=== PATIENT | male | born 1985 | race Caucasian/White ===

== ENCOUNTER 2018-08-26 11:14 | Inpatient (IN) | payer OTHER ==
[~2018-08-26] VITALS: Ht 177.8 cm; Wt 86.3 kg
[2018-08-26] VITALS (21 sets, daily range): BP systolic 105–132; BP diastolic 59–79; PULSE 54–94; RESP 9–25; Ht 177.8 cm; Wt 86.3 kg
[~2018-08-26 11:14] MED LIST: PROPOFOL 200 MG INJ ONE
[2018-08-26] MEDS ORDERED: KETOROLAC 30 MG INJ IM STA (13:37)
[2018-08-26] MEDS ORDERED: ONDANSETRON (ODT) 4 MG TAB ODT STA (13:37)
[2018-08-26] MEDS ORDERED: KETOROLAC 30 MG INJ IV STA (14:03)
[2018-08-26] MEDS ORDERED: morphine 4 MG/ML VIAL IV STA (15:37)
[2018-08-26] MEDS ORDERED: SOD CHLORIDE 0.9% 1,000 ML IV ONE (16:00)
[2018-08-26] MEDS ORDERED: PIPER-TAZO 3.375 GM IV (PMX) 100 ML IVPB ONE (16:30)
--- NOTE | 2018-08-26 17:02 | ERD ---
ER Documentation Chief Complaint Chief Complaint RLQ abdominal pain since last night with vomiting HPI The patient was initially seen by the PA who initiated a work-up The patient is a 33-year-old male, presenting to the ER because of abdominal pain that began last night, it began at the left upper quadrant, radiating down to the right lower quadrant, denies similar symptoms previously, denies fever, vomiting, dysuria, diarrhea. ROS All systems reviewed and are negative except as per history of present illness. Allergies Allergies: Coded Allergies: No Known Allergy (Unverified , 08/26/18) PMhx/Soc Hx Alcohol Use: No Hx Substance Use: No Hx Tobacco Use: No Smoking Status: Never smoker Physical Exam Vitals Vital Signs Date Temp Pulse Resp B/P (MAP) Pulse Ox O2 O2 Flow FiO2 Time Delivery Rate 08/26/18 98.2 58 18 117/69 99 Room Air 16:23 (85) 08/26/18 97.7 60 18 129/78 99 11:31 (95) Physical Exam Const: No acute distress. Head: Atraumatic. Eyes: Normal Conjunctiva. ENT: Normal External Ears, Nose and Mouth. Neck: Full range of motion. No meningismus. Resp: Clear to auscultation bilaterally. Cardio: Regular rate and rhythm. Abd: Soft, non distended, normal bowel sounds, moderate right lower quadrant tenderness, no rigidity/rebound/CVA tenderness Skin: No petechiae or rashes. Back: No midline or flank tenderness. Ext: No cyanosis, or edema. Neur: Awake and alert. No focal deficit Psych: Normal Mood and Affect. Result Diagram: 08/26/18 1359 08/26/18 1359 Results 24 hrs Laboratory Tests Test 08/26/18 13:59 White Blood Count 13.2 10^3/ul Red Blood Count 5.32 10^6/ul Hemoglobin 16.2 g/dl Hematocrit 47.5 % Mean Corpuscular Volume 89.3 fl Mean Corpuscular Hemoglobin 30.5 pg Mean Corpuscular Hemoglobin Concent 34.1 g/dl Red Cell Distribution Width 12.1 % Platelet Count 209 10^3/UL Mean Platelet Volume 9.9 fl Immature Granulocytes % 0.300 % Neutrophils % 84.5 % Lymphocytes % 8.3 % Monocytes % 6.3 % Eosinophils % 0.2 % Basophils % 0.4 % Nucleated Red Blood Cells % 0.0 /100WBC Immature Granulocytes # 0.040 10^3/ul Neutrophils # 11.2 10^3/ul Lymphocytes # 1.1 10^3/ul Monocytes # 0.8 10^3/ul Eosinophils # 0.0 10^3/ul Basophils # 0.1 10^3/ul Nucleated Red Blood Cells # 0.0 10^3/ul Urine Color YELLOW Urine Clarity CLEAR Urine pH 5.0 Urine Specific [place] 1.014 Urine Ketones NEGATIVE mg/dL Urine Nitrite NEGATIVE mg/dL Urine Bilirubin NEGATIVE mg/dL Urine Urobilinogen NEGATIVE mg/dL Urine Leukocyte Esterase NEGATIVE [place]/ul Urine Hemoglobin NEGATIVE mg/dL Urine Glucose NEGATIVE mg/dL Urine Total Protein NEGATIVE mg/dl Sodium Level 142 mmol/L Potassium Level 4.3 mmol/L Chloride Level 103 mmol/L Carbon Dioxide Level 29 mmol/L Anion Gap 10 Blood Urea Nitrogen 12 mg/dl Creatinine 1.06 mg/dl Est Glomerular Filtrat Rate mL/min > 60 mL/min Glucose Level 92 mg/dl Calcium Level 10.1 mg/dl Total Bilirubin 1.7 mg/dl Direct Bilirubin 0.00 mg/dl Indirect Bilirubin 1.7 mg/dl Aspartate Amino Transf (AST/SGOT) 20 IU/L Alanine Aminotransferase (ALT/SGPT) 23 IU/L Alkaline Phosphatase 44 IU/L Total Protein 7.7 g/dl Albumin 4.6 g/dl Globulin 3.10 g/dl Albumin/Globulin Ratio 1.48 Lipase 59 U/L Current Medications Medications Dose Sig/Gayatri Start Time Status Last (Trade) Ordered Route PRN Stop Time Admin Dose Reason Admin Ketorolac 60 mg ONCE STAT 08/26/18 DC Tromethamine IM 13:37 08/26/18 (Toradol) 14:04 Ondansetron 4 mg ONCE STAT 08/26/18 DC 08/26/18 HCl (Zofran ODT 13:37 08/26/18 14:10 Odt) 13:40 Ketorolac 30 mg ONCE STAT 08/26/18 DC 08/26/18 Tromethamine IV 14:03 08/26/18 14:11 (Toradol) 14:05 Morphine 4 mg ONCE STAT 08/26/18 DC 08/26/18 Sulfate IV 15:37 08/26/18 15:44 (morphine) 15:39 Sodium 1,000 ml @ Q1H ONCE 08/26/18 08/26/18 Chloride 1,000 mls/hr IV 16:00 08/26/18 15:45 16:59 Piperacillin 100 ml @ ONCE ONCE 08/26/18 08/26/18 Sod/ 200 mls/hr IVPB 16:30 08/26/18 16:51 Tazobactam 16:59 Sod Procedures/MDM [place] [address] Radiology Main Line: [phone] DIAGNOSTIC IMAGING REPORT Patient: MAHAMED CALLEJAS : 1985 Age: 33 Sex: M MR #: [id number] DOS: 08/26/18 1440 Ordering MD: PAULINO DOWNING NP Location: [facility] Room/Bed: PROCEDURE: CT ABDOMEN AND PELVIS WITHOUT CONTRAST. CLINICAL INDICATION: Right and left lower quadrant abdominal pain TECHNIQUE: CT scan of the abdomen and pelvis without contrast was performed on a multidetector high-resolution CT scanner. The patient was scanned without intravenous contrast. Coronal and sagittal reformatted images were obtained f rom the axial source images. Images were reviewed on a high-resolution PACS workstation. The total exam CTDI equals 12.5 mGy and the total exam DLP equals 780.5 mGy-cm. One or more of the following dose reduction techniques were used: Automated exposure control. Adjustment of the mA and/or kV according to patient size. Use of iterative reconstruction technique. DICOM images are available COMPARISON: None FINDINGS: CT abdomen: The lung bases are clear. The heart size is within normal limits. There is no significant pericardial effusion. Hepatic morphology is within normal limits. No gross contour deforming masses. The gallbladder is within normal limits. No evidence of intrahepatic or extrahepatic biliary dilatation. The spleen and pancreas are within normal limits. Both adrenal glands are within normal limits. Both kidneys are in normal anatomic position. No evidence of obstruction or hydronephrosis. No gross renal/ureteric calculi. The visualized GI tract demonstrates fluid-filled distension of the appendix with adjacent fluid. No perforation or focal fluid collection at this time. The unenhanced aorta is unremarkable. No significant retroperitoneal ly mphadenopathy. CT pelvis: The bladder is within limits. Prostate is normal size. Rectosigmoid colon demonstrates stool. No same pelvic lymphadenopathy. The visualized osseous structures appears to be within normal limits. IMPRESSION: 1. FINDINGS DESCRIBED ABOVE ARE MOST CONSISTENT WITH ACUTE APPENDICITIS. THE APPENDIX IS FLUID-FILLED AND DISTENDED WITH ADJACENT INFLAMMATORY CHANGES AND FLUID WITHIN RIGHT LOWER QUADRANT. No gross evidence of focal fluid collections or perforation at this time. 2. No evidence of bowel obstruction. 3. No gross renal/ureteric calculi. No obstructive uropathy. RPTAT: AAPP Physician Denise Date Time Electronically viewed and signed by Physician Denise on 08/26/2018 16:07 JL/ CC: PAULINO DOWNING NP [id number] Consultation: I discussed the patient with the on-call general surgeon Dr. Rollins at 4:30p, who was made aware of the lab, the treatment, the patient condition and he accepted the consult MEDICAL MAKING DECISION: The patient is a 33-year-old male, presenting with acute appendicitis, was treated with IV fluids, pain medication, Zosyn IV for acute appendicitis The differential diagnoses considered include but are not limited to cholelithiasis, cholecystitis, choledocholithiasis, cholangitis, pancreatitis, hepatitis, gastritis, peptic ulcer disease, gastric ulcer, appendicitis, cystitis, diverticulitis, partial small bowel obstruction. Departure Diagnosis: Primary Impression: Appendicitis Condition: Stable Comments I discussed the findings with the patient. I discussed the patient with the hospitalist, who was made aware of the lab, the treatment, the patient condition. The patient is admitted to [facility] Disclaimer: Inadvertent spelling and grammatical errors are likely due to EHR/dictation software use and do not reflect on the overall quality of patient care. Also, please note that the electronic time recorded on this note does not necessarily reflect the actual time of the patient encounter. MARGARITA KELLOGG MD August 26, 2018 17:02
--- NOTE | 2018-08-26 17:56 | PREAC ---
Date/Time of Note Date/Time of Note DATE: 08/26/18 TIME: 17:55 Anesthesia Eval and Record Evaluation Time Pre-Procedure Interview DATE: 08/26/18 TIME: 17:55 Age 33 Sex male NPO: 8 hrs Preoperative diagnosis appendicitis Planned procedure Lap Appy Past Medical History Past Medical History: None Surgery & Anesthesia Issues No known issue Meds Anticoagulation: No Beta Florin within 24 hr: No Reason Beta Florin not given: Pt. not on B-Florin Meds reviewed: Yes Allergies Coded Allergies: No Known Allergy (Unverified , 08/26/18) Allergies Reviewed: Yes Labs/Studies Labs Reviewed: Reviewed by anesthesiologist Result Diagram: 08/26/18 1359 08/26/18 1359 Laboratory Tests 08/26/18 13:59 test: N/A Pre-procedure Exam Last vitals Vital Signs Date Temp Pulse Resp B/P (MAP) Pulse Ox O2 O2 Flow FiO2 Time Delivery Rate 08/26/18 98.7 61 18 117/75 99 Room Air 17:27 (89) Airway: Adequate mouth opening, Adequate thyromental dist Mallampati: Mallampati II Teeth: Normal Lung: Normal Heart: Normal ASA Physical Status ASA physical status: 1 Emergency: None Pre-operative Attestations Prior to commencing anesthesia and surgery, the patient was re-evaluated, there was verification of: *The patient's identity *The results of appropriate recent lab work and preoperative vital signs *The above evaluation not changing prior to induction *Anesthetic plan, risk benefits, alternative and complications discussed with patient/family; questions answered; patient/family understands, accepts and wishes to proceed. ALAN TURNER August 26, 2018 17:56
[2018-08-26] MEDS ORDERED: FENTAnyl 50 MCG/ML VIAL ONE (17:59)
[2018-08-26] MEDS ORDERED: MEPERIDINE 25 MG INJ IV PRN (18:00)
[2018-08-26] MEDS ORDERED: FENTAnyl 50 MCG/ML VIAL IV PRN ×3 (18:00)
[2018-08-26] MEDS ORDERED: DIPHENHYDRAMINE 50 MG INJ IV PRN ×2 (18:00→19:30)
[2018-08-26] MEDS ORDERED: ONDANSETRON 4 MG INJ IV PRN ×3 (18:00→19:30)
[2018-08-26] MEDS ORDERED: HYDROmorphONE 1 MG/5 ML IV SYRINGE IV PRN ×3 (18:00)
[2018-08-26] MEDS ORDERED: METOCLOPRAMIDE 10 MG INJ IV PRN (18:00)
[2018-08-26] MEDS ORDERED: ALBUTEROL 0.083% (NEB) 2.5 MG/3 ML AMP HHN PRN (18:00)
--- NOTE | 2018-08-26 18:02 | CONS ---
Assessment/Plan Assessment/Plan Assessment/Plan (Daily) Acute appendicitis. Patient needs laparoscopic appendectomy. We discussed risk and benefits. We discussed risks and benefits were discussed possible side effects, possible complications including but not limited to bleeding, infection, injury to other organs, anesthesia complication, patient understood risk and benefits and wished to proceed. Consultation Date/Type/Reason Admit Date/Time Date of Consultation: August 26, 2018 Type of Consult Surgical Reason for Consultation Abdominal pain Date/Time of Note DATE: 08/26/18 TIME: 17:59 Hx of Present Illness 33-year-old otherwise healthy male developed diffuse abdominal pain yesterday that focused in the right lower quadrant. Pain was associated with nausea emesis x1. Patient was referred to the emergency room where a CT scan was performed that showed findings consistent with acute appendicitis. White blood count was found to be 13,000. Surgical consultation was requested. Constitutional: no complaints, improved Eyes: no complaints ENT: no complaints Respiratory: no complaints Cardiovascular: no complaints Gastrointestinal: pain, decreased appetite, nausea, vomiting Genitourinary: no complaints Musculoskeletal: no complaints Skin: no complaints Neurologic: no complaints Endocrine: no complaints Lymphatic: no complaints Psychological: no complaints, nl mood/affect Immunologic: no complaints Past Medical History Medical History: no pertinent history Medications Current Medications Hydromorphone HCl (Dilaudid) 0.2 mg PACU PRN IV MILD PAIN 1-3; Start 08/26/18 at 18:00; Status UNV Hydromorphone HCl (Dilaudid) 0.4 mg PACU PRN IV MOD PAIN 4-6; Start 08/26/18 at 18:00; Status UNV Hydromorphone HCl (Dilaudid) 0.6 mg PACU PRN IV SEVERE PAIN 7-10; Start 08/26/18 at 18:00; Status UNV Fentanyl (Sublimaze) 25 mcg PACU ORDER PRN IV MILD PAIN 1-3; Start 08/26/18 at 18:00; Status UNV Fentanyl (Sublimaze) 50 mcg PACU ORDER PRN IV MOD PAIN 4-6; Start 08/26/18 at 18:00; Status UNV Fentanyl (Sublimaze) 75 mcg PACU ORDER PRN IV SEVERE PAIN 7-10; Start 08/26/18 at 18:00; Status UNV Ondansetron HCl (Zofran Inj) 4 mg PACU ORDER PRN IV NAUSEA/VOMITING; Start 08/26/18 at 18:00; Status UNV Metoclopramide HCl (Reglan) 10 mg PACU ORDER PRN IV NAUSEA/VOMITING; Start 08/26/18 at 18:00; Status UNV Albuterol (Proventil 0.083% (Neb)) 2.5 mg PACU ORDER PRN HHN .WHEEZING; Start 08/26/18 at 18:00; Status UNV Meperidine HCl (Demerol) 25 mg PACU ORDER PRN IV .RIGORS; Start 08/26/18 at 18:00; Status UNV Diphenhydramine HCl (Benadryl) 25 mg PACU ORDER PRN IV .PRURITUS; Start 08/26/18 at 18:00; Status UNV Allergies: Coded Allergies: No Known Allergy (Unverified , 08/26/18) Past Surgical History Past Surgical Hx: no surgical history Family History Significant Family History: no pertinent family hx Social History Smoking Status: Never smoker Exam/Review of Systems Exam Vitals Vital Signs Date Temp Pulse Resp B/P (MAP) Pulse Ox O2 O2 Flow FiO2 Time Delivery Rate 08/26/18 98.7 61 18 117/75 99 Room Air 17:27 (89) Constitutional: alert, oriented, well developed Psych: no complaints, nl mood/affect Head: normocephalic, atraumatic Eyes: nl conjunctiva, EOMI, nl lids, nl sclera, PERRL ENMT: nl external ears & nose, nl lips & teeth, nl nasal mucosa & septum Neck: supple, non-tender Respiratory: clear to auscultation, normal air movement Cardiovascular: regular rate and rhythm, nl pulses Gastrointestinal: other (Abdomen is soft not distended there is a positive Rovsing sign, there is a significant tenderness in the right lower quadrant on deep palpation with rebound.) Musculoskeletal: nl extremities to inspection, nl gait and stance Extremities: normal pulses Neurological: JOB INTERVIEWER II-XII intact, nl mental status, nl speech, nl strength Skin: nl turgor; No rash or lesions Lymph: nl lymph nodes Results Result Diagram: 08/26/18 1359 08/26/18 1359 Results 24hrs Laboratory Tests Test 08/26/18 13:59 White Blood Count 13.2 H Red Blood Count 5.32 Hemoglobin 16.2 Hematocrit 47.5 Mean Corpuscular Volume 89.3 Mean Corpuscular Hemoglobin 30.5 Mean Corpuscular Hemoglobin Concent 34.1 Red Cell Distribution Width 12.1 Platelet Count 209 Mean Platelet Volume 9.9 Immature Granulocytes % 0.300 Neutrophils % 84.5 H Lymphocytes % 8.3 L Monocytes % 6.3 Eosinophils % 0.2 Basophils % 0.4 Nucleated Red Blood Cells % 0.0 Immature Granulocytes # 0.040 H Neutrophils # 11.2 H Lymphocytes # 1.1 Monocytes # 0.8 Eosinophils # 0.0 Basophils # 0.1 Nucleated Red Blood Cells # 0.0 Urine Color YELLOW Urine Clarity CLEAR Urine pH 5.0 Urine Specific [place] 1.014 Urine Ketones NEGATIVE Urine Nitrite NEGATIVE Urine Bilirubin NEGATIVE Urine Urobilinogen NEGATIVE Urine Leukocyte Esterase NEGATIVE Urine Hemoglobin NEGATIVE Urine Glucose NEGATIVE Urine Total Protein NEGATIVE Sodium Level 142 Potassium Level 4.3 Chloride Level 103 Carbon Dioxide Level 29 Anion Gap 10 Blood Urea Nitrogen 12 Creatinine 1.06 Est Glomerular Filtrat Rate mL/min > 60 Glucose Level 92 Calcium Level 10.1 Total Bilirubin 1.7 H Direct Bilirubin 0.00 Indirect Bilirubin 1.7 H Aspartate Amino Transf (AST/SGOT) 20 Alanine Aminotransferase (ALT/SGPT) 23 Alkaline Phosphatase 44 Total Protein 7.7 Albumin 4.6 Globulin 3.10 Albumin/Globulin Ratio 1.48 Lipase 59 Medications Medication Current Medications Hydromorphone HCl (Dilaudid) 0.2 mg PACU PRN IV MILD PAIN 1-3; Start 08/26/18 at 18:00; Status UNV Hydromorphone HCl (Dilaudid) 0.4 mg PACU PRN IV MOD PAIN 4-6; Start 08/26/18 at 18:00; Status UNV Hydromorphone HCl (Dilaudid) 0.6 mg PACU PRN IV SEVERE PAIN 7-10; Start 08/26/18 at 18:00; Status UNV Fentanyl (Sublimaze) 25 mcg PACU ORDER PRN IV MILD PAIN 1-3; Start 08/26/18 at 18:00; Status UNV Fentanyl (Sublimaze) 50 mcg PACU ORDER PRN IV MOD PAIN 4-6; Start 08/26/18 at 18:00; Status UNV Fentanyl (Sublimaze) 75 mcg PACU ORDER PRN IV SEVERE PAIN 7-10; Start 08/26/18 at 18:00; Status UNV Ondansetron HCl (Zofran Inj) 4 mg PACU ORDER PRN IV NAUSEA/VOMITING; Start 08/26/18 at 18:00; Status UNV Metoclopramide HCl (Reglan) 10 mg PACU ORDER PRN IV NAUSEA/VOMITING; Start 08/26/18 at 18:00; Status UNV Albuterol (Proventil 0.083% (Neb)) 2.5 mg PACU ORDER PRN HHN .WHEEZING; Start 08/26/18 at 18:00; Status UNV Meperidine HCl (Demerol) 25 mg PACU ORDER PRN IV .RIGORS; Start 08/26/18 at 18:00; Status UNV Diphenhydramine HCl (Benadryl) 25 mg PACU ORDER PRN IV .PRURITUS; Start 08/26/18 at 18:00; Status UNV TURNER MARSH MD August 26, 2018 18:02
[2018-08-26] MEDS ORDERED: ROPIVACAINE 0.5 % 30 ML VIAL ONE (18:03)
[2018-08-26] MEDS ORDERED: SOD CHLORIDE 0.9% 1,000 ML IV SCH (18:21)
[2018-08-26] MEDS ORDERED: NITROGLYCERIN (SL) 0.4 MG TAB SL PRN (18:30)
[2018-08-26] MEDS ORDERED: ACETAMINOPHEN 325 MG TAB PO PRN ×2 (18:30→19:30)
[2018-08-26] MEDS ORDERED: DOCUSATE SODIUM 100 MG CAP PO PRN (18:30)
[2018-08-26] MEDS ORDERED: ALBUTEROL/IPRATROPIUM (NEB) 3 ML AMP HHN PRN (18:30)
[2018-08-26] MEDS ORDERED: NACL 0.9% 3 ML SYG IV SCH (18:30)
[2018-08-26] MEDS ORDERED: hydrALAzine 20 MG INJ IV PRN (18:30)
[2018-08-26] MEDS ORDERED: MAGNESIUM HYDROXIDE 30ML CUP PO PRN (18:30)
[2018-08-26] MEDS ORDERED: LORAZEPAM 2 MG INJ IV PRN (18:30)
[2018-08-26] MEDS ORDERED: MIDAZOLAM 1 MG/ML 2 ML INJ ONE (18:35)
[2018-08-26] MEDS ORDERED: ROCURONIUM 50 MG INJ ONE (18:53)
[2018-08-26] MEDS ORDERED: PROPOFOL 20 ML ONE (18:53)
[2018-08-26] MEDS ORDERED: SUCCINYLCHOLINE CHLORIDE 100 MG/5 ML SYG IV ONE (18:53)
[2018-08-26] MEDS ORDERED: LIDOCAINE 100 MG SYRINGE ONE (18:53)
[2018-08-26] MEDS ORDERED: SUGAMMADEX SODIUM 200 MG/2 ML VIAL IV ONE (18:54)
--- NOTE | 2018-08-26 19:05 | OPR ---
Date/Time of Note Date/Time of Note DATE: 08/26/18 TIME: 19:00 Operative Report Procedure Date: August 26, 2018 Preoperative Diagnosis Acute appendicitis Postoperative Diagnosis Acute phlegmonous appendicitis Operation/Procedure Performed Laparoscopic appendectomy Surgeon see signature line Molding Technician None Anesthesia Type: general Anesthesiologist: ALAN TURNER Estimated Blood Loss: minimal Transfusion none Specimen Appendix Grafts/Implants none Complications none Pt Condition Post Procedure: stable Disposition: PACU Indications 33-year-old male with with abdominal pain, underwent work-up in the emergency room and found to have acute appendicitis. We discussed risks and benefits were discussed possible side effects, possible complications including but not limited to bleeding, infection, injury to other organs, anesthesia complication, patient understood risk and benefits and wished to proceed. Procedure Description The risks, benefits and alternatives of the procedure were discussed with the patient and informed consent was obtained. We discussed with the patient and the family possibility of the bleeding, infection, injury to other organs. Patient was brought to operating room positioned supine. General endotracheal anesthesia was induced. Abdomen was prepped and draped in the usual sterile fashion. Timeout was performed. Antibiotics were given previously. Through the small infraumbilical incision the Veress needle was placed and the abdomen was insufflated with CO2 up to 15 mmHg. Through the same incision 5 mm trocar was placed under direct control of the laparoscope. 2 additional trocars were placed in the midline, 12 mm trocar just above the pubis and 5 mm trocar midline between the pubis and the umbilicus. The appendix was visualized and was found to be acutely inflamed with phlegmon. The window was created using blunt dissection at the mesentery of the appendix next to the cecum and appendix was divided using endoscopic stapler with white load. The additional load of the same stapler was used to divide the mesentery. The hemostasis was confirmed. Local bleeding was controlled with the cautery. The abdomen was irrigated all the fluid was carefully sucked out. There is appendix was removed through the 12 mm trocar using Endocatch. The abdomen was desufflated all trocars were removed. The 12 mm trocar was closed in 2 layers using 0 Vicryl to the fascia and 4-0 Monocryl for the skin. The 5 mm trocars were closed just using 4-0 Monocryl to the skin. Patient tolerated procedure well was extubated transferred to recovery room. TURNER MARSH MD August 26, 2018 19:05
[2018-08-26] MEDS ORDERED: DIPHENHYDRAMINE 25 MG CAP PO PRN (19:30)
[2018-08-26] MEDS ORDERED: KETOROLAC 30 MG INJ IV PRN (19:30)
[2018-08-26] MEDS ORDERED: HYDROmorphONE 0.5 MG/0.5 ML SYG IV PRN (19:30)
[2018-08-26] MEDS: D5W-0.45 NACL + KCL 20 MEQ 1,000 ML IV SCH (23:20)
[2018-08-26] MEDS: PIPER-TAZO 3.375 GM IV (PMX) 100 ML IVPB SCH (23:20)
--- NOTE | 2018-08-26 23:40 | HP ---
Date/Time of Note Date/Time of Note DATE: 08/26/18 TIME: 23:40 Assessment/Plan VTE Prophylaxis Risk score (from Ns)>0 risk: 2 SCD applied (from Ns): Yes Pharmacological prophylaxis: heparin Lines/[facility] Assessment/Plan Assessment/Plan 1. Acute phlegmonous appendicitis: Status post laparoscopic appendectomy -Resume diet when cleared by surgery -Pain management -Encourage ambulation 2. Leukocytosis: Secondary to above Result Diagram: 08/26/18 1359 08/26/18 1359 Results 24hrs Laboratory Tests Test 08/26/18 13:59 White Blood Count 13.2 H Red Blood Count 5.32 Hemoglobin 16.2 Hematocrit 47.5 Mean Corpuscular Volume 89.3 Mean Corpuscular Hemoglobin 30.5 Mean Corpuscular Hemoglobin Concent 34.1 Red Cell Distribution Width 12.1 Platelet Count 209 Mean Platelet Volume 9.9 Immature Granulocytes % 0.300 Neutrophils % 84.5 H Lymphocytes % 8.3 L Monocytes % 6.3 Eosinophils % 0.2 Basophils % 0.4 Nucleated Red Blood Cells % 0.0 Immature Granulocytes # 0.040 H Neutrophils # 11.2 H Lymphocytes # 1.1 Monocytes # 0.8 Eosinophils # 0.0 Basophils # 0.1 Nucleated Red Blood Cells # 0.0 Prothrombin Time 13.3 Prothrombin Time Ratio 1.0 INR International Normalized Ratio 1.00 Activated Partial Thromboplast Time 26.6 Urine Color YELLOW Urine Clarity CLEAR Urine pH 5.0 Urine Specific [place] 1.014 Urine Ketones NEGATIVE Urine Nitrite NEGATIVE Urine Bilirubin NEGATIVE Urine Urobilinogen NEGATIVE Urine Leukocyte Esterase NEGATIVE Urine Hemoglobin NEGATIVE Urine Glucose NEGATIVE Urine Total Protein NEGATIVE Sodium Level 142 Potassium Level 4.3 Chloride Level 103 Carbon Dioxide Level 29 Anion Gap 10 Blood Urea Nitrogen 12 Creatinine 1.06 Est Glomerular Filtrat Rate mL/min > 60 Glucose Level 92 Calcium Level 10.1 Total Bilirubin 1.7 H Direct Bilirubin 0.00 Indirect Bilirubin 1.7 H Aspartate Amino Transf (AST/SGOT) 20 Alanine Aminotransferase (ALT/SGPT) 23 Alkaline Phosphatase 44 Total Protein 7.7 Albumin 4.6 Globulin 3.10 Albumin/Globulin Ratio 1.48 Lipase 59 Free Thyroxine 1.07 HPI/ROS Admit Date/Time Admit Date/Time Hx of Present Illness Patient is a 33-year-old male with no significant past medical history who presents the ER complaining of bilateral left and right lower quadrant abdominal pain x 1 day. In the ER he was found to have acute appendicitis. Patient was taken to the OR with a finding of acute phlegmonous appendicitis and he is status post laparoscopic appendectomy. Patient not complaining of chest pain, shortness of breath, nausea/vomiting. PMH/Family/Social Past Medical History Medical History: no pertinent history Medications Current Medications Hydromorphone HCl (Dilaudid) 0.2 mg PACU PRN IV MILD PAIN 1-3; Start 08/26/18 at 18:00; Stop 08/27/18 at 01:00 Hydromorphone HCl (Dilaudid) 0.4 mg PACU PRN IV MOD PAIN 4-6; Start 08/26/18 at 18:00; Stop 08/27/18 at 01:00 Hydromorphone HCl (Dilaudid) 0.6 mg PACU PRN IV SEVERE PAIN 7-10; Start 08/26/18 at 18:00; Stop 08/27/18 at 01:00 Fentanyl (Sublimaze) 25 mcg PACU ORDER PRN IV MILD PAIN 1-3; Start 08/26/18 at 18:00; Stop 08/27/18 at 01:00 Fentanyl (Sublimaze) 50 mcg PACU ORDER PRN IV MOD PAIN 4-6 Last administered on 08/26/18at 19:37; Admin Dose 50 MCG; Start 08/26/18 at 18:00; Stop 08/27/18 at 01:00 Fentanyl (Sublimaze) 75 mcg PACU ORDER PRN IV SEVERE PAIN 7-10; Start 08/26/18 at 18:00; Stop 08/27/18 at 01:00 Ondansetron HCl (Zofran Inj) 4 mg PACU ORDER PRN IV NAUSEA/VOMITING Last administered on 08/26/18at 19:38; Admin Dose 4 MG; Start 08/26/18 at 18:00; Stop 08/27/18 at 01:00 Metoclopramide HCl (Reglan) 10 mg PACU ORDER PRN IV NAUSEA/VOMITING; Start 08/26/18 at 18:00; Stop 08/27/18 at 01:00 Albuterol (Proventil 0.083% (Neb)) 2.5 mg PACU ORDER PRN HHN .WHEEZING; Start 08/26/18 at 18:00; Stop 08/27/18 at 01:00 Meperidine HCl (Demerol) 25 mg PACU ORDER PRN IV .RIGORS; Start 08/26/18 at 18:00; Stop 08/27/18 at 01:00 Diphenhydramine HCl (Benadryl) 25 mg PACU ORDER PRN IV .PRURITUS; Start 08/26/18 at 18:00; Stop 08/27/18 at 01:00 IV Flush (NS 3 ml) 3 ml PER PROTOCOL IV ; Start 08/26/18 at 18:30 Docusate Sodium (Colace) 100 mg Q12H PRN PO .CONSTIPATION; Start 08/26/18 at 18:30 Magnesium Hydroxide (Milk Of Mag) 30 ml DAILY PRN PO .CONSTIPATION; Start 08/26/18 at 18:30 Lorazepam (Ativan) 0.5 mg Q6H PRN IV ANXIETY; Start 08/26/18 at 18:30 Albuterol/ Ipratropium (Duoneb) 3 ml Q4H RESP THERAPY PRN HHN SHORTNESS OF BREATH; Start 08/26/18 at 18:30 Piperacillin Sod/ Tazobactam Sod 100 ml @ 200 mls/hr Q6 IVPB Last administered on 08/26/18at 23:20; Admin Dose 200 MLS/HR; Start 08/27/18 at 00:00 Hydralazine HCl (Apresoline) 10 mg Q6H PRN IV ELEVATED BLOOD PRESSURE; Start 08/26/18 at 18:30 Nitroglycerin (Nitroglycerin (Sl Tab) 0.4 Mg) 1 tab Q5M PRN SL ANGINA; Start 08/26/18 at 18:30 Ondansetron HCl (Zofran Inj) 4 mg Q6H PRN IV NAUSEA AND/OR VOMITING; Start 08/26/18 at 19:30 Acetaminophen (Tylenol Tab) 650 mg Q6H PRN PO PAIN LEVEL 1-3 OR FEVER; Start 08/26/18 at 19:30 Ketorolac Tromethamine (Toradol) 30 mg Q6H PRN IV PAIN; Start 08/26/18 at 19:30; Stop 08/29/18 at 19:29 Hydromorphone HCl (Dilaudid) 0.5 mg Q4H PRN IV PAIN LEVEL 8-10; Start 08/26/18 at 19:30 Acetaminophen/ Hydrocodone Bitart ([place] (5/325)) 1 tab Q6H PRN PO PAIN LEVEL 4-7; Start 08/26/18 at 19:30 Potassium Chloride/Dextrose/ Sod Cl 1,000 ml @ 100 mls/hr Q10H IV Last administered on 08/26/18at 23:20; Admin Dose 100 MLS/HR; Start 08/26/18 at 19:05; Stop 08/29/18 at 19:04 Diphenhydramine HCl (Benadryl) 25 mg Q6H PRN IV PRURITUS; Start 08/26/18 at 19:30 Diphenhydramine HCl (Benadryl) 25 mg Q6H PRN PO PRURITUS; Start 08/26/18 at 19:30 Coded Allergies: No Known Allergy (Unverified , 08/26/18) Past Surgical History Past Surgical Hx: no surgical history Family History Significant Family History: no pertinent family hx Social History Smoking Status: Never smoker Exam/Review of Systems Vital Signs Vitals Vital Signs Date Temp Pulse Resp B/P (MAP) Pulse Ox O2 O2 Flow FiO2 Time Delivery Rate 08/26/18 97.9 60 14 114/59 Room Air 22:00 (77) 08/26/18 97 21:45 08/26/18 8.0 19:13 Exam Exam Constitutional: alert, oriented, well developed Head: normocephalic, atraumatic Eyes: EOMI, PERRL Respiratory: clear to auscultation, normal air movement Cardiovascular: regular rate and rhythm, nl pulses Gastrointestinal: soft, other (Right lower quadrant tenderness elicited on palpation. Patient also with right flank pain) Extremities: normal pulses DUGLAS CARTAGENA MD August 26, 2018 23:40
[2018-08-27 01:48] VITALS: BP 105/64; PULSE 90; RESP 18
[2018-08-27 04:09] VITALS: BP 105/56; PULSE 67; RESP 18
[2018-08-27] MEDS: PIPER-TAZO 3.375 GM IV (PMX) 100 ML IVPB SCH ×2 (05:40→12:54)
[2018-08-27] MEDS: HYDROCODONE/APAP (5/325) TAB PO PRN ×2 (06:10→11:58)
--- NOTE | 2018-08-27 07:20 | PAC ---
Date/Time of Note Date/Time of Note DATE: 08/27/18 TIME: 07:19 Post-Anesthesia Notes Post-Anesthesia Note Last documented vital signs Vital Signs Date Temp Pulse Resp B/P (MAP) Pulse Ox O2 O2 Flow FiO2 Time Delivery Rate 08/27/18 98.4 67 18 105/56 99 Room Air 04:09 (72) 08/26/18 8.0 19:13 Activity: WNL Respiratory function: WNL Cardiovascular function: WNL Mental status: Baseline Pain reasonably controlled: Yes Hydration appropriate: Yes Nausea/Vomiting absent: Yes ALAN TURNER August 27, 2018 07:20
[2018-08-27 08:02] VITALS: BP 102/59; PULSE 88; RESP 18
[2018-08-27] MEDS: D5W-0.45 NACL + KCL 20 MEQ 1,000 ML IV SCH (11:14)
[2018-08-27] MEDS ORDERED: HYDR-4011 PO (12:44)
[2018-08-27] MEDS ORDERED: AMOX1TAB9 PO (12:44)
--- NOTE | 2018-08-27 12:50 | DS ---
Date/Time of Note Date/Time of Note DATE: 08/27/18 TIME: 12:47 Discharge Summary Admission/Discharge Info Admit Date/Time August 26, 2018 at 17:18 Discharge Date/Time Discharge Diagnosis 1. Acute phlegmonous appendicitis, Status post laparoscopic appendectomy on 08/26/2018, stable, follow up with surgery Patient Condition: Stable Hospital Course Patient is a 33-year-old male with no significant past medical history who presents the ER complaining of bilateral left and right lower quadrant abdominal pain x 1 day. In the ER he was found to have acute appendicitis. Patient was taken to the OR with a finding of acute phlegmonous appendicitis and he is status post laparoscopic appendectomy on 08/26/2018. Patient tolerates diet, afe brile. Pain is controlled. Patient will be discharged and instructed to follow up with surgery in one week. Home Meds Active Scripts Hydrocodone/Acetaminophen ([place] 5-325 Tablet) 1 Each Tablet, 1 EACH PO Q6H, #14 TAB Prov:DOMINIC AQUINO MD 08/27/18 Amoxicillin/Potassium Clav (Amox-Clav 500-125 mg Tablet) 500-125 mg Tab, 1 TAB PO BID for 7 Days, TAB Prov:DOMINIC AQUINO MD 08/27/18 Follow-up Plan follow up with PCP and surgeon in one week Primary Care Provider Care Physician No Primary Pending Labs Laboratory Tests Test 08/26/18 13:59 08/27/18 04:59 White Blood Count 13.2 10^3/ul (4.8-10.8) 8.3 10^3/ul (4.8-10.8) Red Blood Count 5.32 10^6/ul (4.70-6.10) 4.05 10^6/ul (4.70-6.10) Hemoglobin 16.2 g/dl (14.0-18.0) 12.4 g/dl (14.0-18.0) Hematocrit 47.5 % (42.0-52.0) 36.2 % (42.0-52.0) Mean Corpuscular Volume 89.3 fl (82.0-101.0) 89.4 fl (82.0-101.0) Mean Corpuscular 30.5 pg (29.0-33.0) 30.6 pg (29.0-33.0) Hemoglobin Mean Corpuscular 34.1 g/dl (32.0-37.0) 34.3 g/dl (32.0-37.0) Hemoglobin Concent Red Cell Distribution 12.1 % (11.5-14.5) 12.3 % (11.5-14.5) Width Platelet Count 209 10^3/UL (140-415) 165 10^3/UL (140-415) Mean Platelet Volume 9.9 fl (7.4-10.4) 10.4 fl (7.4-10.4) Immature Granulocytes % 0.300 % (0.001-0.429) 0.200 % (0.001-0.429) Neutrophils % 84.5 % (39.0-77.0) 89.7 % (39.0-77.0) Lymphocytes % 8.3 % (15.0-51.0) 6.5 % (15.0-51.0) Monocytes % 6.3 % (0.0-11.0) 3.3 % (0.0-11.0) Eosinophils % 0.2 % (0.0-7.0) 0.1 % (0.0-7.0) Basophils % 0.4 % (0.0-2.0) 0.2 % (0.0-2.0) Nucleated Red Blood Cells 0.0 /100WBC (0.0-0.0) 0.0 /100WBC (0.0-0.0) % Immature Granulocytes # 0.040 10^3/ul (0.0-0.031) 0.020 10^3/ul (0.0-0.031) Neutrophils # 11.2 10^3/ul (1.6-7.5) 7.4 10^3/ul (1.6-7.5) Lymphocytes # 1.1 10^3/ul (0.8-2.9) 0.5 10^3/ul (0.8-2.9) Monocytes # 0.8 10^3/ul (0.3-0.9) 0.3 10^3/ul (0.3-0.9) Eosinophils # 0.0 10^3/ul (0.0-0.5) 0.0 10^3/ul (0.0-0.5) Basophils # 0.1 10^3/ul (0.0-0.1) 0.0 10^3/ul (0.0-0.1) Nucleated Red Blood Cells 0.0 10^3/ul (0.0-0.0) 0.0 10^3/ul (0.0-0.0) # Prothrombin Time 13.3 Sec (11.9-14.9) Prothrombin Time Ratio 1.0 INR International 1.00 Normalized Ratio Activated 26.6 Sec (23.0-35.0) Partial Thromboplast Time Urine Color YELLOW (YELLOW) Urine Clarity CLEAR (CLEAR) Urine pH 5.0 (5.0-9.0) Urine Specific [place] 1.014 (1.003-1.030) Urine Ketones NEGATIVE mg/dL (NEGATIVE) Urine Nitrite NEGATIVE mg/dL (NEGATIVE) Urine Bilirubin NEGATIVE mg/dL (NEGATIVE) Urine Urobilinogen NEGATIVE mg/dL (NEGATIVE) Urine Leukocyte Esterase NEGATIVE [place]/ul Urine Hemoglobin NEGATIVE mg/dL (NEGATIVE) Urine Glucose NEGATIVE mg/dL (NEGATIVE) Urine Total Protein NEGATIVE mg/dl (NEGATIVE) Sodium Level 142 mmol/L (135-144) 140 mmol/L (135-144) Potassium Level 4.3 mmol/L (3.5-5.1) 4.2 mmol/L (3.5-5.1) Chloride Level 103 mmol/L (97-110) 107 mmol/L (97-110) Carbon Dioxide Level 29 mmol/L (21-31) 29 mmol/L (21-31) Anion Gap 10 (5-13) 4 (5-13) Blood Urea Nitrogen 12 mg/dl (7-20) 12 mg/dl (7-20) Creatinine 1.06 mg/dl (0.61-1.24) 1.17 mg/dl (0.61-1.24) Est Glomerular Filtrat > 60 mL/min (>60) > 60 mL/min (>60) Rate mL/min Glucose Level 92 mg/dl (70-220) 113 mg/dl (70-220) Calcium Level 10.1 mg/dl (8.4-10.2) 8.6 mg/dl (8.4-10.2) Total Bilirubin 1.7 mg/dl (0.2-1.3) Direct Bilirubin 0.00 mg/dl (0.00-0.20) Indirect Bilirubin 1.7 mg/dl (0-1.1) Aspartate Amino 20 IU/L (15-46) Transf (AST/SGOT) Alanine 23 IU/L (13-69) Aminotransferase (ALT/SGPT ) Alkaline Phosphatase 44 IU/L (42-121) Total Protein 7.7 g/dl (6.1-8.1) Albumin 4.6 g/dl (3.3-4.9) Globulin 3.10 g/dl (1.3-3.2) Albumin/Globulin Ratio 1.48 Lipase 59 U/L (23-300) Free Thyroxine 1.07 ng/dl (0.79-2.35) Hemoglobin A1c 4.9 % (0-5.9) Phosphorus Level 3.8 mg/dl (2.5-4.9) Magnesium Level 1.9 mg/dl (1.7-2.5) Triglycerides Level 28 mg/dl (0-149) Cholesterol Level 82 mg/dl (100-200) LDL Cholesterol, 37 mg/dl Calculated HDL Cholesterol 39 mg/dl (28-63) Cholesterol/HDL Ratio 2.1 RATIO Thyroid Stimulating 0.274 MIU/L (0.465-4.680) Hormone (TSH) DOMINIC AQUINO MD August 27, 2018 12:50
== END 2018-08-27 14:57 | disposition home or self-care (01) | DRG 343 ==
LOC: FTE 11:14 → REC 17:18 → MS1 20:45
PROVIDERS: ADMIT Hospitalist; ATTEND Internal Medicine
PROC: 0DTJ4ZZ Resection of Appendix, Percutaneous Endoscopic Approach (ICD-10-PCS; principal; 2018-08-26 18:00)
DX: K35.80 Unspecified acute appendicitis (principal)
CPT/HCPCS: 36415; 74019; 74176; 76705; 80048; 80053; 80061; 81003; 83036; 83690; 83735; 84100; 84439; 84443; 85025; 85610; 85730; 88304; 96365; 96375; J1170; J1885; J2001; J2250; J2270; J2405; J2543; J2795; J3010; J3480; J7030